=== PATIENT | female | born 1945 | race Caucasian/White ===

== ENCOUNTER 2016-11-20 14:50 | Outpatient (CLI) | payer MEDICARE ==
[~2016-11-20 14:50] MED LIST: AMITRIPTYLINE25 MG PO; ASTEPRO205.5 MCG/ NS; AVAPRO300 M1 PO; CALCIUM1 TA1 PO; CRESTOR10 MG PO; DULERA1 AR1 IH; ESCITALOPRAM20 MG PO; FLAGYL500 M1 PO; FLUTICASONE 50M16 GM; HCTZ/TRIAMTEREN1 CA2 PO; INVANZ 1 GM1 GM IV; LINZESS145 MCG PO; METOPROLOL25 MG PO; NATURE'S BLEND1 T16 PO; NORTRIPTYLINE H25 M1 PO; NORVASC 10MG. T10 MG PO; PANTOPRAZOLE SO40 M1 PO; PLAVIX75 MG PO; PRAVACHOL80 MG PO; PRILOSEC40 MG PO; VITAMIN D1 TAB PO; ZANTAC 150150 MG PO; ZYRTEC-D 5 MG-11 TER PO
[2016-11-20 15:10] VITALS: BP 138/63
[2016-11-20 15:40] VITALS: BP 131/73
[2016-11-20 16:10] VITALS: BP 132/67
[2016-11-20 16:40] VITALS: BP 135/69
[2016-11-20 17:00] VITALS: BP 134/63
[2016-12-24] MEDS ORDERED: PHENERGAN12.5 M3 PO ×2 (11:44→17:47)
[2016-12-24] MEDS ORDERED: LIPITOR40 MG PO (11:45)
[2016-12-24] MEDS ORDERED: AMLO5TAB PO (17:34)
[2016-12-24] MEDS ORDERED: PANTOPRAZOLE SO40 MG PO (17:37)
[2016-12-24] MEDS ORDERED: HYDROCHLOROTH12.5 M1 PO (17:40)
[2016-12-24] MEDS ORDERED: K-DUR 2020 MEQ PO (17:41)
[2016-12-24] MEDS ORDERED: NITROFURANTOIN100 M4 PO (17:42)
[2016-12-24] MEDS ORDERED: ADVAIR 250/5028 PUFF IN (17:45)
[2016-12-24] MEDS ORDERED: PROMETHAZINE HC25 M1 PO (17:45)
== END 2016-11-20 20:30 | disposition home or self-care (01) ==
LOC: COP 14:50
DX: E86.0 Dehydration (principal); I95.1 Orthostatic hypotension
CPT/HCPCS: J2405

== ENCOUNTER → 2017-07-24 | Outpatient (CLI) | payer MEDICARE, OTHER ==
[~2017-07-24] MED LIST changes: +ADVAIR 250/5028 PUFF IN; +AMLO5TAB PO; +HYDROCHLOROTH12.5 M1 PO; +K-DUR 2020 MEQ PO; +LIPITOR40 MG PO; +NITROFURANTOIN100 M4 PO; +PANTOPRAZOLE SO40 MG PO; +PHENERGAN12.5 M3 PO; +PROMETHAZINE HC25 M1 PO
--- NOTE | 2017-07-28 12:58 | RADIOLOGY REPORT PS360 ---
DIG MAMM-SCREEN RAPHAEL W/CAD CAD Screening ORDERING PHYSICIAN : Brendan Rosales MD PATIENT AGE: 71 years GENDER: Female COMPARISON: Previous mammograms: June 2016, October 2014, June 2012 . October 2010 INDICATION: Routine screening no hormones. No new complaints. Noncontributory family history TECHNIQUE: Standard CC and MLO images were obtained. R2 CAD reviewed. FINDINGS: Low-density breast bilaterally March study placement RIGHT BREAST: No significant new findings. Minor density in the retroareolar region is similar to thousand 15 as well as other prior studies. It LEFT BREAST: A small area of density at the lateral left breast is been present since 2010. Although its margin is not as well-defined is less dense and is not changed in size measuring approximately 3 mm corticated be followed. Actually less dense today than on that exam 3 mm size but given its IMPRESSION: Stable bilateral mammogram. No significant new areas concern. Bilateral. Follow-up in one year recommended BI-RADS CATEGORY: 1_Negative RECOMMENDED FOLLOWUP: 12M 12 MONTH FOLLOW-UP (A letter has been sent to the patient regarding results of the study.)
== END ==
LOC: RAD 08:51
DX: Z12.31 Encounter for screening mammogram for malignant neoplasm of breast (principal)
CPT/HCPCS: G0202

== ENCOUNTER → 2017-08-17 | Outpatient (CLI) | payer MEDICARE, OTHER ==
--- NOTE | 2017-08-17 10:38 | RADIOLOGY REPORT PS360 ---
PROCEDURE: 2-D M-mode and color Doppler study INDICATIONS FOR THE TEST: Chest pain COPD+ Heart Murmur Tobacco Smoking Palpitations Fatigue Syncope Edema Hypertension+Diabetes Mellitus Rheumatic Fever SOB TIWARI+Obesity Hyperlipidemia+ Family History HD Additional History STENT PATIENT INFORMATION HEIGHT: 62 WEIGHT:169 GENDER: Female B/P:134/57 2-D/M-MODE INTERPRETATION: 2-D MEASUREMENTS OBSERVED VALUES IN CMS Right Ventricular Dimension (RVDd) 1.8 Interventricular Septum (Thickness)(IVsd) 1.2 Left Ventricular Internal Dimensions(LVIDd) 5.2 Left Ventricular Posterior Wall (Thickness)(LVPWd) 0.8 Aortic Root 3.0 Aortic Cusp Separation 2.0 Left Atrial Dimensions (LAD) 3.7 2D 1. Left atrium is mildly enlarged, left ventricle is normal size, there is mild qualitative concentric left ventricular hypertrophy, visually estimated ejection fraction approximately 45-50%, there appears to be moderate hypokinesis involving the inferolateral wall. 2. The right atrium and right ventricle are relatively normal size and function. 3. The aortic valve is minimally thickened and fibrosed. 4. The mitral valve has dense mitral calcification there is no mitral stenosis. 5. The tricuspid valve is structurally normal. 6. The pulmonic valve is poorly visualized. 7. No significant pericardial effusion noted. DOPPLER INTERROGATION: Doppler interrogation of the aortic, mitral and tricuspid valvular presence of mild mitral and tricuspid regurgitation, tricuspid regurgitant jet velocity is insufficient for calculation of the right ventricular systolic pressure, grade 1 diastolic dysfunction seen without tissue Doppler evidence of raised left atrial pressure. CONCLUSION: 1. Mildly enlarged left atrium, normal left ventricular size, mild concentric left ventricular hypertrophy, visually estimated ejection fraction 45-50% with segmental wall motion abnormality described above. Grade 1 diastolic dysfunction seen without tissue Doppler evidence of raised left atrial pressure. 2. Mild mitral and tricuspid regurgitation. 3. No significant pericardial effusion noted.
== END ==
LOC: RT 09:26
DX: R06.02 Shortness of breath (principal); I25.10 Atherosclerotic heart disease of native coronary artery without angina pectoris; I11.9 Hypertensive heart disease without heart failure; E78.5 Hyperlipidemia, unspecified

== ENCOUNTER 2017-08-31 09:16 | Day surgery (SDC) | payer MEDICARE, OTHER ==
--- NOTE | 2017-08-31 12:03 | Operative Note ---
Colonoscopy (Chris) Procedure date: 08/31/17 Date of : 41 Procedure:Colonoscopy Colonoscopy Indications: Mrs. Hyde is a 71-year-old female who states that she had colon polyps at the time of her last colonoscopy 4-5 years ago and states that she was due for colonoscopy this year. Her last colonoscopy was performed at the offices of Dr. Sanders and Dr. Ponce. The patient reports no abdominal pain, weight loss, change in her bowel habits or rectal bleeding. She did have gastritis and Vincent's esophagus with some dyspepsia. She had confusion with Reglan and was switched to domperidone. The patient reports no family history of colon cancer. Performing Provider: Kerline Perez MD Referrring Provider: Shamir Pompa M.D. Sedation: Fentanyl 200 mg IV/Versed 9 mg IV Procedure: Prior to the procedure, a history and physical exam was performed, and patient medications and allergies were reviewed. The risks and benefits of the procedure and the sedation options and risks were discussed with the patient. All questions were answered and informed consent was obtained. Patient identification and proposed procedure were verified by the physician and the nurse. The patient was placed in a left lateral decubitus position. Throughout the procedure, the patient's blood pressure, pulse, and oxygen saturations were monitored continuously. Findings: On digital rectal examination there was normal rectal tone. There were no external hemorrhoids. The colonoscope was introduced through the anal canal to the rectum and advanced to the cecum. The ileocecal valve and appendiceal orifice were identified. The scope was advanced a short distance into the ileum which appeared grossly normal. The scope was then withdrawn into the colon. The cecum, ascending and transverse colon and mucosa were grossly normal. There were extensive scattered diverticuli throughout the descending and sigmoid colon ( LEFT colon). The rectum itself was normal. Upon retroflexion within the rectum there were grade 1 internal hemorrhoids. Impressions: 1. Extensive left-sided diverticulosis 2. Grade 1 internal hemorrhoids Recommendations: I am not convinced that the patient will require any further screening/ surveillance colonoscopy based on lack of any adenomatous colon polyps. I would encourage fiber supplementation on a long-term daily maintenance basis. Complications: None EBL (ml): 0 at 1202
[2017-08-31 14:27] VITALS: BP 145/64
== END 2017-08-31 12:50 | disposition home or self-care (01) ==
LOC: SDC 09:16
PROVIDERS: Internal Medicine Gastroenterology
PROC: 0DJD8ZZ Inspection of Lower Intestinal Tract, Via Natural or Artificial Opening Endoscopic (ICD-10-PCS; principal; 2017-08-31 10:30)
DX: Z12.11 Encounter for screening for malignant neoplasm of colon (principal); Z86.010 Personal history of colon polyps; K57.30 Diverticulosis of large intestine without perforation or abscess without bleeding; K64.0 First degree hemorrhoids